=== PATIENT | female | born 1935 ===

== ENCOUNTER 2020-08-17 11:45 | Inpatient (IN) | payer OTHER ==
[~2020-08-17] VITALS: Ht 157.5 cm; Wt 77.1 kg
[2020-08-17] MEDS ORDERED: METFORMIN HCL1000 M2 PO (15:23)
[2020-08-17] MEDS ORDERED: GLIPIZIDE XL5 MG PO (15:23)
[2020-08-17] MEDS ORDERED: ZESTRIL2.5 MG PO (15:23)
[2020-08-17] MEDS ORDERED: LANTUS SOL100 UNIT/1 (15:23)
[2020-08-17] MEDS ORDERED: PRILOSEC OTC20 MG PO (15:24)
[2020-08-17] MEDS ORDERED: LEVO-T25 MCG PO (15:24)
[2020-08-24] MEDS ORDERED: PERCOCET 5-3251 EACH PO (13:15)
[2020-08-24] MEDS ORDERED: COLACE100 MG PO (13:15)
[2020-08-24] MEDS ORDERED: DIAZEPAM5 MG PO (13:15)
== END 2020-08-25 16:43 | disposition home or self-care (01) | DRG 472 ==
LOC: O/R 08-24 06:17 → SURH 08-24 06:17
PROVIDERS: ADMIT Orthopaedic Surgery Orthopaedic Surgery of the Spine; ATTEND Orthopaedic Surgery Orthopaedic Surgery of the Spine
PROC: 0RG20A0 Fusion of 2 or more Cervical Vertebral Joints with Interbody Fusion Device, Anterior Approach, Anterior Column, Open Approach (ICD-10-PCS; principal; 2020-08-25)
PROC: 0RT30ZZ Resection of Cervical Vertebral Disc, Open Approach (ICD-10-PCS; 2020-08-25)
PROC: 07DS3ZZ Extraction of Vertebral Bone Marrow, Percutaneous Approach (ICD-10-PCS; 2020-08-25)
PROC: 4A12X4Z Monitoring of Cardiac Electrical Activity, External Approach (ICD-10-PCS; 2020-08-25)
DX: M47.12 Other spondylosis with myelopathy, cervical region (principal); M50.021 Cervical disc disorder at C4-C5 level with myelopathy; M50.022 Cervical disc disorder at C5-C6 level with myelopathy; M50.023 Cervical disc disorder at C6-C7 level with myelopathy; Z20.828 Contact with and (suspected) exposure to other viral communicable diseases